=== PATIENT | male | born 1980 | race Caucasian/White ===

== ENCOUNTER 2018-07-15 08:25 | Emergency (ER) | payer OTHER, SELFPAY ==
[2018-07-15 08:33] VITALS: BP 143/90; PULSE 86; RESP 13; TEMP 36.7; O2SAT 99
[2018-07-15] MEDS: TET,DIPH,PERTUSS(ACELL),VAC/PF 0.5 ML SYRINGE IM (08:48)
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
[2018-07-15] MEDS: PROPARACAINE 0.5% OPHTH SOL 1 DROPS EYE-RIGHT (09:08)
[2018-07-15] MEDS: OXYCODONE/ACETAMINOPHEN 5/325 TABLET 1 TAB PO (09:08)
[2018-07-15] MEDS: ERYTHROMYCIN OPHTH 1 GM OINT 1 APPLIC EYE-RIGHT (09:10)
[2018-07-15 09:18] VITALS: BP 141/91; PULSE 57; RESP 16; O2SAT 100
== END 2018-07-15 09:18 | disposition home or self-care (01) ==
PROVIDERS: Emergency Provider Emergency Medicine
DX: T26.40XA Burn of unspecified eye and adnexa, part unspecified, initial encounter (principal); T20.00XA Burn of unspecified degree of head, face, and neck, unspecified site, initial encounter; X12.XXXA Contact with other hot fluids, initial encounter; Y99.0 Civilian activity done for income or pay
CPT/HCPCS: 90471; 99283; 90715